=== PATIENT | female | born 1980 | race Two or more races ===

== ENCOUNTER → 2021-02-16 | Outpatient (CLI) | payer BC ==
[~2021-02-16] MED LIST: IBUP-1060 PO; OXYC-325 PO
== END ==
LOC: LAB 11:01
PROVIDERS: ATTEND Obstetrics & Gynecology
DX: Z01.812 Encounter for preprocedural laboratory examination (principal); Z20.822 Contact with and (suspected) exposure to COVID-19
CPT/HCPCS: U0003; U0005

== ENCOUNTER 2021-02-19 08:12 | Day surgery (SDC) | payer BC ==
[~2021-02-19] VITALS: Ht 165.1 cm; Wt 102.0 kg
[~2021-02-19 08:12] MED LIST changes: +HYDROmorphone 2 MG/ML VIAL IVP PRN; +IV RINGERS,LACTATED 1000ML 1,000 ML IV SCH; +MORPHINE SULFATE 2 MG/ML VIAL. IVP PRN; -OXYC-325 PO; +PROCHLORPERAZINE 10 MG/2 ML VIAL. IVP PRN; +fentaNYL PF VIAL 100 MCG/2 ML VIAL IVP PRN
[2021-02-19] MEDS ORDERED: LIDOCAINE 2% PF 5 ML VIAL. ONE (08:38)
[2021-02-19] MEDS ORDERED: PROPOFOL 10 MG/ML (20ML) VIAL. IV ONE (08:38)
[2021-02-19] MEDS ORDERED: fentaNYL PF VIAL 100 MCG/2 ML VIAL ONE (08:38)
[2021-02-19 08:43] VITALS: BP 135/78
[2021-02-19] MEDS ORDERED: BUPIVACAINE-EPI 0.25% 30 ML VIAL KIT. ONE (09:50)
[2021-02-19] MEDS ORDERED: SILVER NITRATE STICK TP ONE (09:50)
[2021-02-19] MEDS ORDERED: BUPIVACAINE-EPI 0.5%-1:200000 MPF 30 ML VIAL. ONE (10:07)
[2021-02-19] MEDS ORDERED: ONDANSETRON PF 4 MG/2 ML VIAL. ONE (10:39)
[2021-02-19] MEDS ORDERED: SEVOFLURANE 31 TO 60 MINUTES. IH ONE (10:39)
--- NOTE | 2021-02-19 10:48 | PDOC ---
BRIEF OPERATIVE NOTE Date: February 19, 2021 Pre-Op Diagnosis Right Bartholin Duct Cyst Post-Op Diagnosis Same Procedure Performed Marsupialization Surgeon Dr. Potter Lift Operator Switchboard Installer: Pia Anesthesia Type: General Blood Loss 5 ml Specimens Obtained hematoma with possible foreign body Findings Right Bartholin Duct Cyst with hematoma and possible foreign body Complications none Operative Note see dictation ZHAO POTTER Jr, MD February 19, 2021 10:48
--- NOTE | 2021-02-19 10:50 | DISCH ---
DISCHARGE INSTRUCTIONS Condition on Discharge Condition on Discharge: Stable Activity After Discharge Activity Instructions for Disc: Activity as tolerated Bathing Instructions: Shower-keep dressing dry, No Tub Bath until see Lifting Instructions after Dis: No heavy lifting Driving Instructions after Dis: Do not drive today Diet after Discharge Diet after Discharge: Regular Contacting the after DC Call your doctor for: Concerns you may have Follow-Up Follow up with: Dr. Potter in 1 week. ZHAO POTTER Jr, MD February 19, 2021 10:50
[2021-02-19] MEDS ORDERED: PROCHLORPERAZINE 10 MG/2 ML VIAL. ONE (10:57)
[2021-02-19] MEDS ORDERED: OXYC-325 PO (11:22)
[2021-02-19] MEDS ORDERED: oxyCODONE/APAP 5/325 1 TAB TABLET PO ONE ×2 (11:30)
[2021-02-19 11:35] VITALS: BP 124/83
--- NOTE | 2021-02-19 14:01 | OP ---
DATE OF SURGERY: 02/19/2021 PREOPERATIVE DIAGNOSIS: Right Bartholin duct cyst. POSTOPERATIVE DIAGNOSIS: Right Bartholin duct cyst. PROCEDURE: Marsupialization. SURGEON: Agapito Potter MD NURSES SUPERVISOR: ____. ANESTHESIA: LMA. ESTIMATED BLOOD LOSS: 5 mL COMPLICATIONS: None. FINDINGS: Right Bartholin duct cyst with a hematoma, possible foreign body. SUMMARY: A 40-year-old with right Bartholin duct cyst over the last 2 months that continued to increase in size and cause a lot of pain and tenderness. The patient was counseled on the risks, benefits and expectations of marsupialization and voiced understanding and agreed to proceed. DESCRIPTION OF PROCEDURE: The patient was taken to surgery suite and placed in dorsal lithotomy position, was prepped with Betadine solution and draped in a sterile fashion. After adequate anesthesia, weighted speculum was placed. The right Bartholin duct cyst was more of the upper pole of the right labia minora, which 1% lidocaine with epinephrine was injected along the upper pole of the cyst area. Scalpel was utilized to make a vertical incision along the length of the cyst about 3.5-4 cm size. The capsule was entered with sharp dissection. There was hematoma formation with possible foreign body by palpation. The rest of the area was irrigated copiously. Marsupialization took place with 3-0 chromic suture in interrupted fashion. The area was hemostatic. Vaseline gauze and Ray-Conchita were placed. Weighted speculum was removed. The patient tolerated the procedure well and was taken to recovery room in stable condition. Sponge and needle count correct x 3. [facility] [place]: Peri TID: [id number]
== END 2021-02-19 12:00 | disposition home or self-care (01) ==
LOC: SURG 08:12
PROVIDERS: ATTEND Obstetrics & Gynecology
DX: N75.0 Cyst of Bartholin's gland (principal); Z79.899 Other long term (current) drug therapy; Z98.890 Other specified postprocedural states; Z98.51 Tubal ligation status; Z72.89 Other problems related to lifestyle
CPT/HCPCS: 56440; 81025; J0690; J0780; J2405; J2704; J3010; A4930; A6222; A6223; A6402

== ENCOUNTER → 2021-07-08 | Outpatient (CLI) | payer BC ==
[~2021-07-08] MED LIST changes: -HYDROmorphone 2 MG/ML VIAL IVP PRN; -IV RINGERS,LACTATED 1000ML 1,000 ML IV SCH; -MORPHINE SULFATE 2 MG/ML VIAL. IVP PRN; +OXYC-325 PO; -PROCHLORPERAZINE 10 MG/2 ML VIAL. IVP PRN; -fentaNYL PF VIAL 100 MCG/2 ML VIAL IVP PRN
--- NOTE | 2021-07-08 14:15 | RAD ---
EXAMINATION: US PELVIS COMPLETE, 07/08/2021 6:48 AM CLINICAL INDICATION: Pelvic pain on the left TECHNIQUE: Grayscale, color and spectral Doppler ultrasound images of the pelvis via transabdominal a nd transvaginal approach. COMPARISON: None. FINDINGS: The uterus measures 9.8 x 6.4 x 4.8 cm. The endometrial stripe measures 10 mm in thickness. No myomet rial mass. The right ovary measures 2.7 x 1.7 x 1.6 cm. The left ovary measures 4.1 x 2.2 x 2.5 cm. There is a h ypoechoic cystic lesion in the left ovary measuring 2.7 cm, possibly a complicated or hemorrhagic cys t. Normal ovarian blood flow bilaterally. No adnexal mass or free fluid. IMPRESSION: 2.7 cm probable hemorrhagic or complicated cyst in the left ovary. Consider follow-up ult rasound in 8-12 weeks to ensure resolution. Electronically signed by: Sridevi Burris MD (07/08/2021 2:12 PM) [id number]
== END ==
LOC: US 06:38
PROVIDERS: ATTEND Obstetrics & Gynecology
DX: R10.2 Pelvic and perineal pain (principal); E34.9 Endocrine disorder, unspecified
CPT/HCPCS: 76856

== ENCOUNTER → 2021-08-03 | Outpatient (CLI) | payer BC ==
--- NOTE | 2021-08-03 08:34 | RAD ---
EXAM: Pelvic sonogram. HISTORY: Ovarian cyst. TECHNIQUE: Sonographic imaging of the pelvis was performed. COMPARISON: 07/08/2021. FINDINGS: The uterus measures 11.5 x 6.0 x 4.9 cm. The endometrial stripe measures 8.2 mm in thicknes s. There is a 1.9 cm complicated thick-walled left ovarian cyst with internal debris. The ovaries are normal in size and demonstrate normal blood flow. There is no pelvic free fluid. IMPRESSION: 1. 1.7 cm complicated left ovarian cyst, likely representing the previously demonstrated cyst measuri ng 2.7 cm on a study performed 07/08/2021. The interval decrease in size favors a benign involuting cy st. Follow-up can be performed in 3 months to confirm complete resolution. 2. Otherwise, unremarkable pelvic sonogram. Electronically signed by: Sondra Harding MD (08/03/2021 8:31 AM) [id number]
== END ==
LOC: US 06:53
PROVIDERS: ATTEND Obstetrics & Gynecology
DX: N83.202 Unspecified ovarian cyst, left side (principal)
CPT/HCPCS: 76856